=== PATIENT | male | born 1940 | race Caucasian/White ===

== ENCOUNTER 2019-05-22 10:23 | Outpatient (CLI) | payer MEDICARE, BC, SELFPAY ==
--- NOTE | 2019-05-22 10:27 | ECG_ITS ---
Measurements Intervals [place] Rate: 80 P: [place]: 0 QRS: -8 QRSD: 92 T: 13 QT: 359 QTc: 415 Interpretive Statements ATRIAL FIBRILLATION EARLY PRECORDIAL R/S TRANSITION BASELINE ARTIFACT- I, II, III, AVR, AVL, AVF, V1-V6 ABNORMAL ECG Electronically Signed On 05-22-2019 11:34:25 CDT by Ricardo Puente D.O.
== END 2019-05-22 10:24 | disposition home or self-care (01) ==
LOC: ANHSURGERY 10:27
PROVIDERS: PCP Internal Medicine; Visit Provider Otolaryngology
DX: I48.91 Unspecified atrial fibrillation (principal); R94.31 Abnormal electrocardiogram [ECG] [EKG]
CPT/HCPCS: 93005

== ENCOUNTER 2019-09-01 00:04 | Outpatient (CLI) | payer MEDICARE, BC, SELFPAY ==
[2019-09-01 20:58] LABS: SARS-CoV-2 RNA PCR Negative
== END 2019-09-01 00:05 | disposition home or self-care (01) ==
LOC: ANHCOVIDDT 00:04
PROVIDERS: PCP Internal Medicine; Visit Provider Otolaryngology
DX: Z01.818 Encounter for other preprocedural examination (principal); Z11.59 Encounter for screening for other viral diseases
CPT/HCPCS: 87635; C9803; U0003

== ENCOUNTER 2019-09-04 00:47 | Day surgery (SDC) | payer MEDICARE, BC, SELFPAY ==
[2019-05-19 09:49] VITALS: BMI 29.8
[2019-08-30 09:12] VITALS: BMI 29.8
[2019-09-04] VITALS (9 sets, daily range): BP systolic 122–153; BP diastolic 87–97; PULSE 72–82; RESP 12–18; TEMP 35.8–36.1; O2SAT 94–100
[2019-09-04] MEDS: LACTATED RINGERS 1,000 ML 30 ML IV CONT ×2 (09:30→12:18)
[2019-09-04] MEDS: OXYMETAZOLINE HCL 0.05% NAS 15 ML BTL (*BKC) 1 SPRAY NASAL (10:40)
--- NOTE | 2019-09-04 10:46 | WPDHPUPDATE1 ---
History and Physical Update Update Date/Time: 09/04/19 10:46 Septoplasty, turbinoplasty, bilateral maxillary, ethmoid and sphenoid sinusotomy, left frontal sinusotomy. Image guided surgery. History and Physical has been reviewed, including an updated exam of the patient. There are NO changes in the patient's condition. Risks, benefits, and alternatives have been discussed and questions answered. Patient agrees to proceed with procedure.
--- NOTE | 2019-09-04 10:51 | WPDANESEPPF ---
Anes - Initial Pre Proc Eval Procedure: Operation Date: 09/04/19 11:00 Proposed Procedures p Fusion Guided Bilateral Ethmoidectomy, Bilateral Sphenoidotomy, Bilateral Maxillary Antrostomy, Bilateral Turbinate Reduction, Left Frontal Sinusotomy, Possible Right Sinusotomy - Jose Maki MD s Septoplasty - Jose Maki MD Date/Time: 09/04/19 10:51 Surgeon: Jose Maki MD Pre Op Diagnosis: Chronic Sinusitis Patient Data Age: 79 Gender: M Height: 6 ft Weight: 98.5 kg Last Vital Signs Temp 35.8 C L 09/04/19 09:02 Pulse 79 09/04/19 09:02 Resp 18 09/04/19 09:02 BP 143/87 H 09/04/19 09:02 Pulse Ox 100 09/04/19 09:02 Allergies Allergy/AdvReac Type Severity Reaction Status Date / Time No Known Allergies Allergy Unverified 08/30/19 09:11 Home Medications Medication Instructions Recorded Confirmed Type apixaban 5 mg tablet 5 mg PO BID 01/24/19 08/30/19 History tamsulosin 0.4 mg capsule 0.4 mg PO HS 01/24/19 08/30/19 History metoprolol tartrate 25 mg tablet 25 mg PO BID tablet 02/01/19 08/30/19 History multivitamin,dk-gigp-jvvommxl 1 tablet PO DAILY 05/19/19 08/30/19 History [Complete Multivitamin] fluticasone propionate 50 See Rx Instructions NASAL DAILY 06/20/19 08/30/19 Rx mcg/actuation nasal PRN #18.2 ml spray,suspension omeprazole 40 mg capsule,delayed 40 mg PO DAILY #90 cap 06/26/19 08/30/19 Rx release Patient hx anesthesia problems: none Family hx anesthesia problems: none PMFSH Past Medical History Medical History Acute nonintractable headache Atrial fibrillation Bilateral hearing loss Body mass index (bmi) 29.0-29.9, adult (02/02/18) Body mass index (bmi) 30.0-30.9, adult (04/01/18) Body mass index (bmi) 31.0-31.9, adult (06/18/17) BPH w urinary obs/LUTS Chronic bilateral low back pain without sciatica Chronic fatigue Dependence on other enabling machines and devices Dietary counseling and surveillance (01/20/16) Erectile dysfunction Former smoker Quit around 2004 Gastroesophageal reflux disease Hx of colonic polyps Hyperlipidemia Immunization counseling Obstructive sleep apnea Other chronic pain Paroxysmal atrial fibrillation Family History Family History Father Cerebrovascular accident Family history of lung disease Sibling Patient's sister is in good health Patient's brother is in good health Mother Family history unknown Social History Social History Smoking status: Former smoker Smoking end date: 03/08/07 Alcohol intake: current Anes - Eval Final PreProcedure Day of Procedure 09/04/19 10:51 Patient weight: overweight Heart: regular rate and rhythm Lungs: clear to auscultation Airway: Mallampati scale class II Neurological: alert and oriented Last oral intake: >/= 8 hours ASA classification: III Emergent: no Anesthetic plan: proceed Anesthesia type and monitoring: general ETT and standard monitoring Informed Consent: The patient's anesthetic plan and its attendant risks and benefits were discussed with the patient/family/POA. Questions were solicited and answers provided to the satisfaction of the patient/family/POA.
[2019-09-04] MEDS: ceFAZolin 2 GM/D5W 50 ML 2 GM/50 ML BAG IVPB (11:00)
[2019-09-04] MEDS: LIDO 1%/EPINEPHRINE 1:100,000 20 ML VIAL 5 ML INFILTRATE (11:07)
[2019-09-04] MEDS: MUPIROCIN 2% OINT 22 GM TUBE 1 APPLIC TOPICAL (11:09)
--- NOTE | 2019-09-04 12:09 | SUR.OPER ---
Ebl=30ml
--- NOTE | 2019-09-04 12:12 | PM.PROC ---
Procedure Note - Detailed Date of procedure: 09/04/19 Pre-op diagnosis: Chronic Sinusitis Post-op diagnosis: same Procedure performed: Left frontal sinusotomy, bilateral maxillary antrostomy, total ethmoidectomy, sphenoidotomy, turbinoplasty. Description of procedure: On the date of procedure the patient was met in the preoperative area and risk and benefits of the procedure reviewed with the patient as documented in the H&P and they elected to proceed with surgery. Patient was brought back to the operating room by the anesthesia team and underwent general endotracheal anesthesia. Once an adequate plane of anesthesia was obtained a timeout was performed to assure the patient identification the patient here to be performed were correct. They were.The patient was then prepped and draped in the normal fashion for endoscopic sinus surgery. The diffusion image guidance system was calibrated and used for the entire case. Afrin-soaked pledgets were placed in the nasal cavities bilaterally. The entire case was performed under endoscopic visualization. Nasal endoscopy was performed at the beginning of the case. 1% lidocaine with 1:100,000 epinephrine was then injected into the root of the middle turbinate and lateral nasal wall. Attention was first directed towards the right side. The middle turbinate was medialized and the osteomeatal complex was identified with a desean probe. Using a 90 degree backbiter, the uncinate process was reflected anteriorly and removed using a combination of sharp and powered dissection. The maxillary antrostomy was then created and widened by identifying the natural ostia and opening the sinus with straight cici-cut forceps, backbiter, and microdebrider. Continuing with the microdebrider, the anterior ethmoid bulla was opened. Careful dissection was carried out posteriorly, through the basal lamella and posterior ethmoid cells until the sphenoid rostrum was identified. A Doron suction bluntly identified the sphenoid os and the opening was widened with microdebrider and mushroom punch to 5mm. Polyp disease was removed from the sphenoid. Using an image guided curved suction as well as J-curette, the posterior most ethmoid cell was identified and the ethmoids were bluntly fractured and dissected from posterior to anterior along the base of the skull. The remaining bone fragments were removed with appropriate curved instruments and microdebrider. Chronic inflammatory tissue encountered. Next, The left maxillary antrostomy, ethmoidectomy and sphenoidotomy were carried out in identical fashion. Upon completion of these portions of the procedure, the frontal recess was identified. Image guided seeker confirmed proper identification of the frontal recess. The sinus was widened using frontal sinus instruments. With all sinuses opened, nasopore packing was placed in the ethmoid acvities bilaterally. Hemostasis was ensured. Lastly, the bilateral inferior turbiantes were reduced submucosally using 2mm microdebrider and then outfractured with a sayer elevator. This significantly opened the airway. At this point, the procedure was concluded. Care the patient was transferred back to the anesthesia team and the patient was awoke in the operating room and transferred back to the PACU in stable condition. Jose Maki M.D. Anesthesia: [facility] Surgeon: Jose Maki MD Estimated blood loss (mL): 30 Drains: No Packing: Yes (bilateral nasopore) Pathology: none sent Complications: No immediate complications Condition: stable Disposition: same day Findings: Chronic sinusitis. Septoplasty deferred due to ease of access and lack of significant obstruction.
== END 2019-09-04 14:10 | disposition home or self-care (01) ==
PROVIDERS: PCP Internal Medicine; Visit Provider Otolaryngology
PROC: (CPT 31253; principal; 2019-09-04 11:00)
DX: J32.9 Chronic sinusitis, unspecified (principal); K21.9 Gastro-esophageal reflux disease without esophagitis; E78.5 Hyperlipidemia, unspecified; G47.33 Obstructive sleep apnea (adult) (pediatric); I48.0 Paroxysmal atrial fibrillation; G89.29 Other chronic pain; Z87.891 Personal history of nicotine dependence; Z79.01 Long term (current) use of anticoagulants
CPT/HCPCS: 31253; 31256; 31257; 61782; 30140; A9270; J0330; J0690; J1100; J2405; J2704; J3010; J7120

== ENCOUNTER 2019-09-25 12:13 | Outpatient (CLI) | payer MEDICARE, BC, SELFPAY ==
[2019-09-25 12:56] LABS: Alanine Aminotransferase 24 U/L (4-50); Alkaline Phosphatase 87 U/L (38-126); Aspartate Amino Transferase 28 U/L (17-59); Bilirubin,Total 0.7 mg/dL (0.2-1.3); Blood Urea Nitrogen 23 mg/dL (9-20); Calcium 8.9 mg/dL (8.4-10.2); Carbon Dioxide 26 mmol/L (22-30); Chloride 103 mmol/L (98-107); Cholesterol 172 mg/dL (0-200); Estimated Glomerular Filt Rate > 60; Glucose 104 mg/dL (75-110); HDL Direct 29 mg/dL; Potassium 3.9 mmol/L (3.4-5.0); Sodium 137 mmol/L (137-145); Triglycerides 109 mg/dL (<150)
[2019-09-25 13:07] LABS: LDL Cholesterol Direct 116 mg/dL
== END 2019-09-25 12:14 | disposition home or self-care (01) ==
PROVIDERS: PCP Internal Medicine; Visit Provider Internal Medicine
DX: I48.91 Unspecified atrial fibrillation (principal); E78.5 Hyperlipidemia, unspecified
CPT/HCPCS: 36415; 80053; 80061

== ENCOUNTER 2020-01-03 01:37 | Outpatient (CLI) | payer MEDICARE, BC, SELFPAY ==
[2020-01-03 18:17] LABS: SARS-CoV-2 RNA PCR Negative
== END 2020-01-03 01:38 | disposition home or self-care (01) ==
LOC: ANHCOVIDDT 01:37
PROVIDERS: PCP Internal Medicine; Visit Provider Internal Medicine Gastroenterology
DX: Z01.812 Encounter for preprocedural laboratory examination (principal); Z20.828 Contact with and (suspected) exposure to other viral communicable diseases
CPT/HCPCS: 87635; C9803; U0003

== ENCOUNTER 2020-01-05 00:48 | Day surgery (SDC) | payer MEDICARE, BC, SELFPAY ==
[2019-12-28 09:27] VITALS: BMI 28.0
[2020-01-05 09:23] VITALS: BP 159/87; PULSE 88; RESP 18; TEMP 36.6; O2SAT 98; BMI 28.6
[2020-01-05] MEDS: LACTATED RINGERS 1,000 ML 150 ML IV CONT (09:38)
--- NOTE | 2020-01-05 09:43 | WPDGICN ---
Assessment and Plan Assessment and plan (1) Dysphagia: Code(s): R13.10 - Dysphagia, unspecified Status: Acute Assessment and Plan: Because of difficulty swallowing an EGD will be performed today. Patient has a history of GE reflux disease which could be a risk factor for esophageal stricture ring. Patient attributes many of his difficulties to sinus drainage as well. (2) Gastroesophageal reflux disease: Qualifiers: Esophagitis presence: esophagitis presence not specified Qualified Code(s): K21.9 - Gastro-esophageal reflux disease without esophagitis Code(s): K21.9 - Gastro-esophageal reflux disease without esophagitis Status: Acute (3) Atrial fibrillation: Qualifiers: Atrial fibrillation type: unspecified Qualified Code(s): I48.91 - Unspecified atrial fibrillation Code(s): I48.91 - Unspecified atrial fibrillation Status: Acute Assessment and Plan: Eliquis anticoagulation will be held briefly at the time of endoscopy. (4) Chronic rhinitis: Code(s): J31.0 - Chronic rhinitis Status: Acute GI Consult Note Consult date/time: 01/05/20 09:43 HPI: Glynn Titus is a 79 year old male Seen in evaluation at the request of Dr. Bubba Santiago. patient complains of dysphagia in is referred today for EGD. He does have a history of sinus surgery. He complains of sinus drainage along with upset stomach and nausea. He states that food will catch in the mid substernal portion of the chest. Additionally complains of irregular stools. He denies any bleeding. In the past he was told he had GE reflux for which she has been treated with proton pump inhibitor for many years. Patient denies any bleeding or weight loss past medical history is significant for a colon polyp 3 years ago. Patient's medicines include omeprazole 40 mg p.o. daily. Eliquis is taken daily as well. This will be held for any procedures. Review of Systems Review of Systems: All systems reviewed & are unremarkable except as noted in HPI and below [facility] Past Medical History Medical History (Updated 01/05/20 @ 09:46 by Hima Beckman MD) Acute nonintractable headache Atrial fibrillation Bilateral hearing loss Body mass index (bmi) 29.0-29.9, adult (02/02/18) Body mass index (bmi) 30.0-30.9, adult (04/01/18) Body mass index (bmi) 31.0-31.9, adult (06/18/17) BPH w urinary obs/LUTS Chronic bilateral low back pain without sciatica Chronic fatigue Dependence on other enabling machines and devices Dietary counseling and surveillance (01/20/16) Erectile dysfunction Former smoker Quit around 2004 Gastroesophageal reflux disease Hx of colonic polyps Hyperlipidemia Immunization counseling Obstructive sleep apnea Other chronic pain Paroxysmal atrial fibrillation Family History Family History Father Cerebrovascular accident Family history of lung disease Sibling Patient's sister is in good health Patient's brother is in good health Mother Family history unknown Social History Social History Smoking status: Former smoker Tobacco type: cigarettes Smoking end date: 03/08/07 Alcohol intake: current Substance use: never Substance use type: does not use Living arrangements: with family Spiritual care concerns: No Meds Home Medications and Allergies Home Medications Medication Instructions Recorded Confirmed Type tamsulosin 0.4 mg capsule 0.4 mg PO HS 01/24/19 12/28/19 History Complete Multivitamin 1 tablet PO DAILY 05/19/19 12/28/19 History omeprazole 40 mg capsule,delayed 40 mg PO DAILY #90 cap 09/25/19 12/28/19 Rx release metoprolol tartrate 25 mg tablet 25 mg PO BID #60 tablet 10/31/19 12/28/19 Rx fluticasone propionate 50 See Rx Instructions NASAL DAILY 11/03/19 12/28/19 Rx mcg/actuation nasal PRN #18.2 ml
--- NOTE | 2020-01-05 10:12 | WPDANESEPPF ---
Anes - Initial Pre Proc Eval Procedure: Operation Date: 01/05/20 10:00 Proposed Procedures p Esophagogastroduodenoscopy - Hima Beckman MD Date/Time: 01/05/20 10:12 Surgeon: Hima Beckman MD Pre Op Diagnosis: Dysphagia Patient Data Age: 79 Gender: M Height: 6 ft Weight: 95.8 kg Last Vital Signs Temp 36.6 C 01/05/20 09:23 Pulse 88 01/05/20 09:23 Resp 18 01/05/20 09:23 BP 159/87 H 01/05/20 09:23 Pulse Ox 98 01/05/20 09:23 Allergies Allergy/AdvReac Type Severity Reaction Status Date / Time No Known Allergies Allergy Unverified 01/05/20 09:22 Home Medications Medication Instructions Recorded Confirmed Type tamsulosin 0.4 mg capsule 0.4 mg PO HS 01/24/19 12/28/19 History Complete Multivitamin 1 tablet PO DAILY 05/19/19 12/28/19 History omeprazole 40 mg capsule,delayed 40 mg PO DAILY #90 cap 09/25/19 12/28/19 Rx release metoprolol tartrate 25 mg tablet 25 mg PO BID #60 tablet 10/31/19 12/28/19 Rx fluticasone propionate 50 See Rx Instructions NASAL DAILY 11/03/19 12/28/19 Rx mcg/actuation nasal PRN #18.2 ml spray,suspension apixaban 5 mg tablet 5 mg PO BID #180 tablet 11/14/19 12/28/19 Rx Patient hx anesthesia problems: none Family hx anesthesia problems: none PMFSH Past Medical History Medical History Acute nonintractable headache Atrial fibrillation Bilateral hearing loss Body mass index (bmi) 29.0-29.9, adult (02/02/18) Body mass index (bmi) 30.0-30.9, adult (04/01/18) Body mass index (bmi) 31.0-31.9, adult (06/18/17) BPH w urinary obs/LUTS Chronic bilateral low back pain without sciatica Chronic fatigue Dependence on other enabling machines and devices Dietary counseling and surveillance (01/20/16) Erectile dysfunction Former smoker Quit around 2004 Gastroesophageal reflux disease Hx of colonic polyps Hyperlipidemia Immunization counseling Obstructive sleep apnea Other chronic pain Paroxysmal atrial fibrillation Family History Family History Father Cerebrovascular accident Family history of lung disease Sibling Patient's sister is in good health Patient's brother is in good health Mother Family history unknown Social History Social History Smoking status: Former smoker Tobacco type: cigarettes Smoking end date: 03/08/07 Alcohol intake: current Substance use: never Substance use type: does not use Living arrangements: with family Spiritual care concerns: No Anes - Eval Final PreProcedure Day of Procedure 01/05/20 10:12 Patient weight: overweight Heart: regular rate and rhythm Lungs: clear to auscultation Airway: Mallampati scale class II Neurological: alert and oriented Last oral intake: >/= 8 hours ASA classification: III Emergent: no Anesthetic plan: proceed Anesthesia type and monitoring: general GIVS and standard monitoring Informed Consent: The patient's anesthetic plan and its attendant risks and benefits were discussed with the patient/family/POA. Questions were solicited and answers provided to the satisfaction of the patient/family/POA.
[2020-01-05 10:41] VITALS: BP 111/75; PULSE 83; RESP 18; O2SAT 98
[2020-01-05 10:51] VITALS: BP 118/74; PULSE 78; RESP 16; O2SAT 98
[2020-01-05 11:01] VITALS: BP 138/67; PULSE 64; RESP 14; O2SAT 98
== END 2020-01-05 11:22 | disposition home or self-care (01) ==
PROVIDERS: PCP Internal Medicine; Visit Provider Internal Medicine Gastroenterology
PROC: 0DJ08ZZ Inspection of Upper Intestinal Tract, Via Natural or Artificial Opening Endoscopic (ICD-10-PCS; CPT 43235; principal; 2020-01-05 10:00)
DX: Q39.4 Esophageal web (principal); K44.9 Diaphragmatic hernia without obstruction or gangrene; K21.9 Gastro-esophageal reflux disease without esophagitis; I48.0 Paroxysmal atrial fibrillation; E78.5 Hyperlipidemia, unspecified; G47.33 Obstructive sleep apnea (adult) (pediatric); Z79.01 Long term (current) use of anticoagulants; Z87.891 Personal history of nicotine dependence
CPT/HCPCS: 43450; 43235; J2001; J2704; J7120

== ENCOUNTER 2020-09-19 08:12 | Outpatient (CLI) | payer MEDICARE, BC, SELFPAY ==
[2020-09-19 09:09] LABS: Alanine Aminotransferase 19 U/L (4-50); Albumin Level 4.3 g/dL (3.5-5.1); Alkaline Phosphatase 82 U/L (38-126); Anion Gap 9 mmol/L (8-16); Aspartate Amino Transferase 24 U/L (17-59); Bilirubin,Total 0.8 mg/dL (0.2-1.3); Blood Urea Nitrogen 28 mg/dL (9-20); Calcium 9.7 mg/dL (8.4-10.2); Carbon Dioxide 24 mmol/L (22-30); Chloride 107 mmol/L (98-107); Cholesterol 205 mg/dL (0-200); Estimated Glomerular Filt Rate > 60; Glucose 109 mg/dL (75-110); HDL Direct 35 mg/dL; Potassium 4.1 mmol/L (3.4-5.0); Sodium 140 mmol/L (137-145); Triglycerides 144 mg/dL (<150)
[2020-09-19 09:20] LABS: LDL Cholesterol Direct 119 mg/dL
== END 2020-09-19 08:13 | disposition home or self-care (01) ==
LOC: ANHLAB 08:15
PROVIDERS: PCP Internal Medicine; Visit Provider Internal Medicine
DX: I48.91 Unspecified atrial fibrillation (principal); E78.5 Hyperlipidemia, unspecified
CPT/HCPCS: 36415; 80053; 80061

== ENCOUNTER 2021-02-24 08:25 | Outpatient (CLI) | payer MEDICARE, BC, SELFPAY ==
--- NOTE | ~2021-02-24 | CT_ITS ---
EXAMINATION: CT lung screening DATE: 02/24/2021 08:43 INDICATION: Personal history of tobacco dependence TECHNIQUE: Computed tomography (CT) of the chest was performed without intravenous contrast. The dose -length product was 238.33 mGy-cm. Automated exposure control and iterative reconstruction technique were employed. COMPARISON: CT dated 11/14/2014 FINDINGS: Heart size is normal. No significant pleural or pericardial effusion. There is atherosclero sis of the coronary arteries. There is right lower lobe atelectasis/scarring with mild bronchiectasis . No thoracic lymphadenopathy. Small hiatal hernia. There are a few small 2 mm nodules in the upper l obes. There is a calcified granuloma in the right lower lobe. There are calcified right hilar lymph n odes, consistent with chronic granulomatous disease. There is apical scarring. No endobronchial lesio ns. There is mild thoracic spondylosis. IMPRESSION: 1. Lung-RADS category 2: Benign appearance or behavior. Continue annual screening with noncontrast lo w-dose chest CT in 12 months. Reviewed, dictated and finalized at location [facility]. RY DEMONSTRATOR IMPRESSION: 1. Lung-RADS category 2: Benign appearance or behavior. Continue annual screeni ng with noncontrast low-dose chest CT in 12 months.
== END 2021-02-24 08:26 | disposition home or self-care (01) ==
LOC: ANHIMG 08:28
PROVIDERS: PCP Internal Medicine; Visit Provider Physician Assistant
DX: Z12.2 Encounter for screening for malignant neoplasm of respiratory organs (principal); Z87.891 Personal history of nicotine dependence
CPT/HCPCS: 71271

== ENCOUNTER 2021-03-25 09:59 | Outpatient (CLI) | payer MEDICARE, BC, SELFPAY ==
[2021-03-25 10:32] LABS: Alanine Aminotransferase 22 U/L (4-50); Albumin Level 4.1 g/dL (3.5-5.1); Alkaline Phosphatase 78 U/L (38-126); Anion Gap 7 mmol/L (8-16); Aspartate Amino Transferase 26 U/L (17-59); Bilirubin,Total 0.7 mg/dL (0.2-1.3); Blood Urea Nitrogen 25 mg/dL (9-20); Calcium 9.1 mg/dL (8.4-10.2); Carbon Dioxide 28 mmol/L (22-30); Chloride 102 mmol/L (98-107); Cholesterol 171 mg/dL (0-200); Estimated Glomerular Filt Rate 58; Glucose 107 mg/dL (65-110); HDL Direct 32 mg/dL; Potassium 4.2 mmol/L (3.4-5.0); Sodium 137 mmol/L (137-145); Triglycerides 130 mg/dL (<150)
[2021-03-25 10:43] LABS: LDL Cholesterol Direct 108 mg/dL
== END 2021-03-25 10:00 | disposition home or self-care (01) ==
PROVIDERS: PCP Internal Medicine; Visit Provider Internal Medicine
DX: E78.5 Hyperlipidemia, unspecified (principal); I48.91 Unspecified atrial fibrillation
CPT/HCPCS: 36415; 80053; 80061

== ENCOUNTER 2021-03-31 08:22 | Outpatient (CLI) | payer MEDICARE, BC, SELFPAY ==
[2021-03-31 09:00] LABS: Basophils Absolute Auto 0.1 K/mm3 (0.0-0.1); Basophils Percent Auto 0.8 % (0.2-1.2); Eosinophils Absolute Auto 0.3 K/mm3 (0-0.3); Eosinophils Percent Auto 4.5 % (0-4.4); Hemoglobin 15.2 g/dL (14.0-18.0); Immature Granulocyte Absolute 0.01 K/mm3 (0.00-0.031); Immature Granulocyte Percent A 0.2 % (0-0.5); Lymphocytes Absolute Auto 1.71 K/mm3 (0.9-3.2); Lymphocytes Percent Auto 26.5 % (18.3-44.2); Mean Corpuscular HGB Conc 33.8 g/dl (32-36); Mean Corpuscular Hemoglobin 31.7 pg (26-34); Mean Corpuscular Volume 93.9 fl (80-100); Mean Platelet Volume 9.5 fl (7.4-10.4); Monocytes Absolute Auto 0.6 K/mm3 (0.1-0.6); Monocytes Percent Auto 8.7 % (2.6-8.5); Neutrophils Absolute Auto 3.8 K/mm3 (1.3-6.7); Neutrophils Percent Auto 59.3 % (45.5-73.1); Platelet Count Result 181 k/mm3 (150-375); Red Blood Count 4.79 M/mm3 (4.6-6.20); Red Cell Distribution Width 12.3 % (11.5-14.5); White Blood Count 6.5 K/mm3 (4.5-10.0)
[2021-04-03 13:26] LABS: Testosterone Total 634 ng/dL (250-1100)
== END 2021-03-31 08:23 | disposition home or self-care (01) ==
PROVIDERS: PCP Internal Medicine; Visit Provider Internal Medicine
DX: R53.82 Chronic fatigue, unspecified (principal)
CPT/HCPCS: 36415; 84403; 84443; 85025

== ENCOUNTER 2021-09-29 07:51 | Outpatient (CLI) | payer MEDICARE, BC, SELFPAY ==
[2021-09-29 09:58] LABS: Alanine Aminotransferase 18 U/L (6-50); Alkaline Phosphatase 86 U/L (38-126); Anion Gap 10 mmol/L (8-16); Aspartate Amino Transferase 22 U/L (17-59); Bilirubin,Total 0.6 mg/dL (0.2-1.3); Blood Urea Nitrogen 25 mg/dL (9-20); Calcium 8.7 mg/dL (8.4-10.2); Carbon Dioxide 26 mmol/L (22-30); Chloride 104 mmol/L (98-107); Estimated Glomerular Filt Rate > 60; Glucose 103 mg/dL (65-110); Sodium 140 mmol/L (137-145)
== END 2021-09-29 07:52 | disposition home or self-care (01) ==
PROVIDERS: PCP Internal Medicine; Visit Provider Internal Medicine
DX: I48.91 Unspecified atrial fibrillation (principal); R53.82 Chronic fatigue, unspecified
CPT/HCPCS: 36415; 80053

== ENCOUNTER 2023-02-03 10:55 | Outpatient (CLI) | payer MEDICARE, BC, SELFPAY ==
--- NOTE | ~2023-02-03 | CT_ITS ---
CT Scan of the Chest without Contrast: Clinical Indication: Bronchiectasis Technique: Contiguous sections were acquired throughout the chest without intravenous contrast. Dose reduction technique was used on this scan by utilizing automated exposure control and iterative recon struction technique. The dose-length product (DLP) was 431.36 mGy-cm. COMPARISON: 02/24/2021 Findings: There is no evidence of any significant mediastinal, hilar or axillary lymphadenopathy. Coronary adrianna ry calcifications are present. Small hiatal hernia present. There is no evidence of pleural or pericardial effusion. There is probable minimal bronchiectatic change and scarring at the medial right lower lobe, unchange d. Images through the upper abdomen reveal no abnormalities. Impression: Stable mild bronchiectatic change and scarring at the medial right lower lobe. Small hiatal hernia. Reviewed, dictated and finalized at [facility]. [employer] SUPERVISOR Impression: Stable mild bronchiectatic change and scarring at the medial right lower lobe. Small hiatal hernia.
== END 2023-02-03 10:56 | disposition home or self-care (01) ==
PROVIDERS: PCP Internal Medicine; Visit Provider Physician Assistant
DX: J47.9 Bronchiectasis, uncomplicated (principal); Z87.891 Personal history of nicotine dependence; K44.9 Diaphragmatic hernia without obstruction or gangrene
CPT/HCPCS: 71250

== ENCOUNTER 2023-07-05 10:42 | Outpatient (CLI) | payer MEDICARE, BC, SELFPAY ==
--- NOTE | ~2023-07-05 | MR_ITS ---
EXAMINATION: MR lumbar spine wo/w con DATE: 07/05/2023 11:33 INDICATION: Low back pain. Left leg pain. Lumbar radiculopathy. TECHNIQUE: Magnetic resonance imaging (MRI) of the lumbar spine was performed without and with 20 mL MultiHance intravenous contrast. COMPARISON: Lumbar spine radiographs 06/05/2016 FINDINGS: Bone alignment is normal. There is mild chronic anterior wedging of L1 vertebral body. Ther e is moderately decreased disc height at L3-L4 and mildly decreased disc height at L4-L5. The distal spinal cord signal intensity is normal. The conus medullaris is at T12-L1. The following disc levels are specifically discussed: L1-L2: The disc does not extend beyond the endplate margin. There is mild bilateral facet joint osteo arthritis. There is no neural foraminal stenosis. There is no central canal stenosis. L2-L3: The disc is bulging. There is mild bilateral facet joint osteoarthritis. There is mild bilater al neural foraminal stenosis. There is mild central canal stenosis. L3-L4: The disc is bulging is an annular fissure. There is mild bilateral facet joint osteoarthritis. There is moderate bilateral neural foraminal stenosis. There is mild central canal stenosis with pos terior decompression. L4-L5: The disc is bulging is an annular fissure. There is severe bilateral facet joint osteoarthriti s. There is moderate bilateral neural foraminal stenosis. There is mild central canal stenosis with p osterior decompression. L5-S1: The disc is bulging. There is moderate bilateral facet joint osteoarthritis. There is moderate bilateral neural foraminal stenosis. There is mild central canal stenosis. IMPRESSION: 1. Moderate lumbar spondylosis. Reviewed, dictated and finalized at location A.
== END 2023-07-05 10:43 ==
PROVIDERS: PCP Physician Assistant Surgical; Visit Provider Physician Assistant Surgical
DX: M54.16 Radiculopathy, lumbar region (principal); M43.06 Spondylolysis, lumbar region
CPT/HCPCS: 72158; A9577